=== PATIENT | female | born 1975 | race African-American/Black ===

== ENCOUNTER 2020-08-10 00:01 | Emergency (ER) | payer OTHER ==
[~2020-08-10] VITALS: Ht 165.1 cm; Wt 83.9 kg
[2020-08-10 00:37] VITALS: BP 132/72
== END 2020-08-10 01:57 | disposition home or self-care (01) ==
LOC: ER 00:04
DX: H66.93 Otitis media, unspecified, bilateral (principal); J02.9 Acute pharyngitis, unspecified